=== PATIENT | male | born 1980 | race Caucasian/White ===

== ENCOUNTER 2016-08-02 19:55 | Emergency (ER) | payer BC ==
[~2016-08-02] VITALS: Ht 193 cm; Wt 163.4 kg
[2016-08-02] MEDS ORDERED: ONDANSETRON 2MG/ML, 2ML ONE (20:09)
[2016-08-02] MEDS ORDERED: HYDROmorphone 1 MG/ML, 1ML ONE (20:09)
[2016-08-02] MEDS ORDERED: HYDROmorphone 1 MG/ML, 1ML IV ONE (20:30)
[2016-08-02] MEDS ORDERED: KETOROLAC 30 MG/1 ML IVPush ONE (20:30)
[2016-08-02] MEDS ORDERED: ONDANSETRON 2MG/ML, 2ML IVPush ONE (20:30)
[2016-08-02] MEDS ORDERED: SODIUM CHLORIDE FLUSH 10ML SYR IVF ONE (20:30)
[2016-08-02 20:37] LABS: HEMOGLOBIN 15.6 g/dL (13.7-18.0)
[2016-08-02] MEDS ORDERED: KETOROLAC 30 MG/1 ML ONE (20:42)
[2016-08-02 20:49] LABS: ASPARTATE AMINO TRANSFERASE 44 U/L (15-37); BLOOD UREA NITROGEN 10 mg/dL (7-18)
[2016-08-02 21:05] LABS: PATH.CAST-FLAG NOT PRESENT; SPERM-FLAG NOT PRESENT; SRC-FLAG NOT PRESENT; XTAL-FLAG NOT PRESENT; YLC-FLAG NOT PRESENT
[2016-08-02 21:58] VITALS: BP 117/67
== END 2016-08-02 22:00 | disposition home or self-care (01) ==
LOC: ED 21:54
DX: N13.2 Hydronephrosis with renal and ureteral calculous obstruction (principal); N20.1 Calculus of ureter; R31.9 Hematuria, unspecified
CPT/HCPCS: 36415; 74176; 80053; 81001; 85025; 87086; 96374; 96375; 99285; J1170; J1885; J2405